=== PATIENT | female | born 1935 | race Caucasian/White ===

== ENCOUNTER 2020-05-09 03:59 | Emergency (ER) | payer OTHER ==
[~2020-05-09] VITALS: Ht 160 cm; Wt 81.6 kg
[2020-05-09 04:04] VITALS: Ht 160 cm; Wt 81.6 kg
[2020-05-09] MEDS ORDERED: APAP325 MG PO (06:34)
[2020-05-09] MEDS ORDERED: OMEPRAZOLE MAGN20 M1 PO (06:34)
[2020-05-09] MEDS ORDERED: ALPRAZOLAM0.25 MG PO (06:35)
[2020-05-09] MEDS ORDERED: LOPERAMIDE HCL2 M1 PO (06:35)
[2020-05-09] MEDS ORDERED: BACO TOP (06:36)
[2020-05-09] MEDS ORDERED: ROBAFEN100 MG/5 M PO (06:39)
[2020-05-09] MEDS ORDERED: FLUOXETINE HCL20 M2 PO (06:40)
[2020-05-09] MEDS ORDERED: DIVALPROEX SOD250 M2 PO (06:40)
[2020-05-09] MEDS ORDERED: MICROZIDE12.5 MG PO (06:41)
[2020-05-09] MEDS ORDERED: MEMANTINE HCL10 MG PO (06:42)
[2020-05-09] MEDS ORDERED: LOPRESSOR50 M1 PO (06:42)
[2020-05-09 07:48] LABS: CALCIUM 8.7 mg/dL (8.5-10.1); CARBON DIOXIDE 29.1 mmol/L (21-32); CHLORIDE SERUM 97 mmol/L (98-107); CREATININE SERUM 1.3 mg/dL (0.6-1.0); GLUCOSE SERUM 93 mg/dL (74-106); SODIUM SERUM 135 mmol/L (136-145)
[2020-05-09 07:53] LABS: ALBUMIN 3.3 g/dL (3.4-5.0); ALKALINE PHOSPHATASE 62 U/L (46-116); ALT/SGPT 16 U/L (14-59); AST/SGOT 14 U/L (15-37); BILIRUBIN TOTAL 0.3 mg/dL (0.20-1.00); CHOLESTEROL 313 mg/dL (<200); HDL CHOLESTEROL 55 mg/dL (40-60); TOTAL PROTEIN, SERUM 6.7 g/dL (6.4-8.2)
[2020-05-09 09:06] LABS: BASOPHIL % 0.5 % (0-2); PLATELET COUNT 156 x10^3mcL (130-400); RED CELL DISTRIBUTION WIDTH 14.4 % (11.5-14.5)
[2020-05-09 14:11] VITALS: BP 149/85
== END 2020-05-09 14:11 | disposition home or self-care (01) ==
LOC: ED 03:59
PROVIDERS: Emergency Medicine
DX: E86.0 Dehydration (principal); F03.90 Unspecified dementia, unspecified severity, without behavioral disturbance, psychotic disturbance, mood disturbance, and anxiety; M54.5 Low back pain; I11.0 Hypertensive heart disease with heart failure; I50.9 Heart failure, unspecified; Z88.0 Allergy status to penicillin; Z88.2 Allergy status to sulfonamides; W18.39XA Other fall on same level, initial encounter; Y93.89 Activity, other specified; Y92.89 Other specified places as the place of occurrence of the external cause; Y99.8 Other external cause status
CPT/HCPCS: Q0092